=== PATIENT | male | born 1975 | race Caucasian/White ===

== ENCOUNTER 2017-06-12 11:48 | Emergency (ER) | payer OTHER ==
[2017-06-12] MEDS ORDERED: IBUPROFEN 800 MG TABLET PO ONE (12:35)
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
[2017-06-12 13:48] VITALS: BP 136/99
== END 2017-06-12 13:48 | disposition home or self-care (01) ==
LOC: ER 11:48
DX: S16.1XXA Strain of muscle, fascia and tendon at neck level, initial encounter (principal); M54.9 Dorsalgia, unspecified; M54.5 Low back pain; M54.2 Cervicalgia; V87.7XXA Person injured in collision between other specified motor vehicles (traffic), initial encounter; F17.200 Nicotine dependence, unspecified, uncomplicated
CPT/HCPCS: 72110; 72125; 99284

== ENCOUNTER 2019-03-29 13:21 | Emergency (ER) | payer OTHER ==
--- NOTE | 2019-03-29 13:28 | ER Document Report ---
ED Medical Screen (RME) - General Chief Complaint: Abscess Stated Complaint: POSSIBLE ABSCESS RIGHT THIGH Time Seen by Provider: 03/29/19 13:24 Mode of Arrival: Ambulatory Information source: Patient Notes: 43-year-old male presents to ED for an abscess to the upper inner right thigh. He states it started 2 days ago. He states he tried to squeeze it wants to see if anything will come out it is now about the size of golf ball. There is red surrounding the area. States he smokes about 15 cigarettes a day is on Chantix trying to quit smoking he states he does not drink or use any illicit drugs. States he has no past medical history. I have greeted and performed a rapid initial assessment of this patient. A comprehensive ED assessment and evaluation of the patient, analysis of test results and completion of medical decision making process will be conducted by an additional ED providers. TRAVEL OUTSIDE OF THE [place] IN LAST 30 DAYS: No - Related Data Allergies/Adverse Reactions: No Known Allergies Allergy (Verified 06/12/17 12:07) Past Medical History Renal/ Medical History: Denies: Hx Peritoneal Dialysis - Immunizations Hx Diphtheria, Pertussis, Tetanus Vaccination: Yes
[2019-03-29] MEDS ORDERED: LIDOCAINE 1%/EPINEPHRINE INJ 20 ML VIAL INJ ONE (13:35)
--- NOTE | 2019-03-29 13:39 | ER Document Report ---
HPI - HPI Time Seen by Provider: 03/29/19 13:24 Pain Level: 2 Context: Patient is a 43-year-old male who presents to the emergency department with a chief complaint of abscess. Patient reports 2 days ago he noticed some redness and tenderness to his right upper inner thigh. Patient reports increased tenderness and redness over the past 2 days. Patient denies fever. Patient denies a history of abscess, MRSA or diabetes. Patient denies drainage. Patient reports that walking and rubbing seems to make the pain worse to the abscess. Past Medical History - General Information source: Patient - Social History Smoking Status: Never Smoker Chew tobacco use (# tins/day): No Frequency of alcohol use: Occasional Drug Abuse: None Lives with: Family Family History: Reviewed & Not Pertinent Patient has suicidal ideation: No Patient has homicidal ideation: No - Past Medical History Cardiac Medical History: Reports: None Pulmonary Medical History: Reports: None EENT Medical History: Reports: None Neurological Medical History: Reports: None Endocrine Medical History: Reports: None Renal/ Medical History: Reports: None. Denies: Hx Peritoneal Dialysis Malignancy Medical History: Reports None GI Medical History: Reports: None Musculoskeletal Medical History: Reports None Skin Medical History: Reports None Psychiatric Medical History: Reports: None Traumatic Medical History: Reports: None Infectious Medical History: Reports: None Surgical Hx: Negative - Immunizations Hx Diphtheria, Pertussis, Tetanus Vaccination: Yes Vertical Provider Document - CONSTITUTIONAL Agree With Documented VS: Yes Exam Limitations: No Limitations General Appearance: No Apparent Distress - INFECTION CONTROL TRAVEL OUTSIDE OF THE [place] IN LAST 30 DAYS: No - HEENT HEENT: Atraumatic, Normocephalic, PERRLA - NECK Neck: Normal Inspection - RESPIRATORY Respiratory: Breath Sounds Normal, No Respiratory Distress - CARDIOVASCULAR Cardiovascular: Regular Rate, Regular Rhythm - GI/ABDOMEN Gastrointestinal: Abdomen Soft, Abdomen Non-Tender, Normal Bowel Sounds - NEURO Level of Consciousness: Awake, Alert, Appropriate - DERM Integumentary: Warm, Dry, Abscess Adult Front & Back Diagram: 1 - [id number] abscess, + fluctuant with a firmness surrounding area of erythema. No drainage. Course - Vital Signs Vital signs: Temp Pulse Resp BP Pulse Ox 98.0 F 106 H 18 144/93 H 97 03/29/19 13:26 03/29/19 13:26 03/29/19 13:26 03/29/19 13:26 03/29/19 13:26 Procedures - Incision and Drainage Right Medial Thigh Time completed: 14:15 Type: Simple Anesthetic type: 1% Lidocaine w/epi mL's of anesthetic: 6 Blade size: 11 I&D procedure: Betadine prep applied Incision Method: Incision made by scalpel Notes: 03/29/19 14:36 Abscess documented in a physical examination. Patient was appropriately anesthetized with lidocaine. There was a 1 cm incision made with a scalpel. Patient did have a large amount of purulent foul-smelling discharge. I did investigate the wound and did break open some pockets of pus. The wound was then irrigated with 30 mL's of saline. I did pack the wound with 1/2 inch iodoform gauze. Discharge - Discharge Clinical Impression: Abscess Condition: Stable Disposition: HOME, SELF-CARE Additional Instructions: *Today you are seen the emergency department for an abscess. This did have to be cut and drained. I have placed packing. This helps keep the wound open. Please return in 48 hours for wound recheck. Please use warm compresses. If the packing falls out over the next 48 hours, this is fine. Please continue to use the gauze that was provided to you as the wound will continue to drain. Please return emergency department if symptoms worsen or if you have high fever, chills, increasing redness up or down the leg or increasing swelling. ABSCESS: You have an abscess (boil). This a pus-forming infection, usually due to staph. Some boils may be left to drain on their own, but most require lancing. From the time the tender lump first appears, it may be three or four days before the abscess is ready to audrey. Local heat and rest help at this stage of treatment. An antibiotic may prevent spread of the infection. Once the abscess is opened, packing may be placed into it. This is done so pus is not sealed inside by premature closure of the cavity. The packing will be removed at your follow-up visit or you may be advised to remove it yourself at home. Sometimes this packing must be replaced a few times during healing. The wound will heal with surprisingly little scar. Depending on the size and location of an abscess, healing can take one to four weeks. You may shower and wash the area around the incision site two or three times a day. Antibiotics may be prescribed, but are usually not necessary after an abscess has been drained. If you develop fever, chills, worsening pain, or increasing swelling in the area, call the doctor or return immediately. POST INCISION AND DRAINAGE: You have had an incision made to allow drainage of an abscess. The incision must remain open so that pus and debris can drain from the wound. If the abscess cavity is large, packing is placed. This keeps the tissues from collapsing and trapping pus inside, while the body shrinks the cavity. The packing may need to be replaced every day or two. The physician will instruct you on the packing. Keep a bulky dressing over the area. Replace it if it becomes saturated with blood or pus. Do not disturb the packing (if present). You may shower and cleanse the area with gentle soap and warm water two or three times a day. Local warmth may be soothing, and may promote faster healing. Return if you develop high fever or chills, or if you note spreading redness, increasing swelling, or increasing tenderness. ORAL NARCOTIC MEDICATION: You have been given a prescription for pain control. This medication is a narcotic. It's best taken with food, as nausea can result if taken on an empty stomach. Don't operate machinery or drive within six hours of taking this medication. Do not combine this medicine with alcohol, or with any medication which can cause sedation (such as cold tablets or sleeping pills) unless you get permission from the physician. Narcotics tend to cause constipation. If possible, drink plenty of fluids and eat a diet high in fiber and fruits. CEPHALEXIN: The antibiotic you've been prescribed is a member of the cephalosporin class. This type of antibiotic covers a wide variety of infections, including those of the skin, lungs, and urinary tract. It's useful for staph infections. This antibiotic is slightly similar to the penicillin family. In rare cases, a person who is allergic to penicillin will also be allergic to this medication. If you have had a severe allergic reaction to penicillin, and have not taken this antibiotic since that time, notify your doctor. Antibiotics which cover many germs ("broad spectrum" antibiotics) are more likely to cause diarrhea or "yeast" infections. Women prone to vaginal yeast problems may suffer an attack after taking this antibiotic. In infants, oral thrush (white spots "stuck" on the cheek) or yeast diaper rash may result. See your doctor if these problems occur. Call at once if you develop itching, hives, shortness of breath, or lightheadedness. FOLLOW-UP CARE: Most simple abscesses will not require a follow up visit. If you had packing placed in the abscess, remove it as instructed by the physician. If you have been referred to a physician for follow-up care, call the physicians office for an appointment as you were instructed or within the next two days. If you experience worsening or a significant change in your symptoms, return to the Emergency Department at any time for re-evaluation. Prescriptions: Sulfamethoxazole/Trimethoprim [Bactrim Ds Tablet] 1 each PO BID 7 Days #14 tablet Cephalexin Monohydrate [Keflex 500 mg Capsule] 500 mg PO Q6H 7 Days #28 capsule Ibuprofen [Motrin 800 mg Tablet] 800 mg PO Q8H PRN #30 tab PRN Reason: Forms: Return to Work
[2019-03-29] MEDS ORDERED: IBUPROFEN 800 MG TABLET PO ONE (14:27)
[2019-03-29] MEDS ORDERED: SULFAMETHOXAZOLE/TRIMETHOPRIM 800-160 MG TABLET PO ONE (14:27)
[2019-03-29] MEDS ORDERED: HYDROCODONE/ACETAMINOPHEN 5-325 MG TABLET PO ONE (14:27)
[2019-03-29] MEDS ORDERED: HYDROCODONE/ACETAMINOPHEN 5-325 MG (6 TAB/ER DISP) PO PRN (14:27)
[2019-03-29] MEDS ORDERED: CEPHALEXIN 500 MG CAPSULE PO ONE (14:27)
[2019-03-29 14:47] VITALS: BP 142/97
== END 2019-03-29 14:48 | disposition home or self-care (01) ==
LOC: ER 13:21
DX: L02.415 Cutaneous abscess of right lower limb (principal)
CPT/HCPCS: 10060; J3490; 99283